=== PATIENT | male | born 1930 | race Caucasian/White ===

== ENCOUNTER 2016-11-26 23:00 | Inpatient (IN) | payer MEDICARE ==
--- NOTE | ~2016-11-26 | CN ---
Consultation Report [facility] [address] [place]. [address] NAME: GILBERT TOMAS : [birth year] STATUS : ADM IN PAT#: [id number] AGE: 85 ADM/REG DATE : 11/27/16 MR#: [id number] REPORT SERV DATE: 11/27/16 DICTATED BY: TREMAINE VELA DATE: 11/27/16 REPORT STATUS : Draft TRANSCRIBED BY: MODL DATE: 11/27/16 CARDIOLOGY CONSULTATION DATE OF CONSULTATION: 11/27/2016 REFERRING PHYSICIAN: Dr. Diana. PRIMARY AUTOMATION CONSULTANT: Gilbert Desai M.D. CHIEF COMPLAINT: Fever and chills. REASON FOR CONSULTATION: Abnormal troponin. SOURCE: The patient, his family, and the chart. HISTORY OF PRESENT ILLNESS: Mr. Tomas is a very pleasant 85-year-old white man with coronary artery disease, treated medically and diastolic dysfunction, as well as peripheral artery disease, and renal artery disease. He was in his usual state of health until yesterday. He played golf in the morning and then in the evening, he had chills and fever to 104 degrees Fahrenheit. He has not had any chest pain. No shortness of breath. He had a little cough producing white sputum yesterday evening. He has not had any dysuria or frequency. He came to [facility] and was thought to have pneumonia and is being treated with antibiotics. The troponin level was drawn, which was mildly abnormal at 0.15 and we were asked to see him in consultation. REVIEW OF SYSTEMS: All other systems are negative. ALLERGIES: HYDROCODONE, IBUPROFEN, AND CLINDAMYCIN. MEDICATIONS AT HOME: Included allopurinol, amlodipine, aspirin, clopidogrel, metoprolol, nitroglycerin, tramadol, and fish oil. CARDIAC RISK FACTORS: Included hypertension, hyperlipidemia, remote tobacco. Denies diabetes or family history. PAST MEDICAL HISTORY: Significant for coronary artery disease, reportedly three-vessel CAD at catheterization. Recommendations were for medical therapy. He has had a renal artery stenosis status post angioplasty and stenting of the solitary left kidney in 2010, status post bilateral carotid endarterectomy, iliac graft for ischemic left lower extremity, congestive heart failure, thought to be diastolic dysfunction with normal LV systolic function by echocardiography, PVCs status post right nephrectomy for cancer in 2003. He has also had colon cancer status post colon surgery, cataract surgery, and skin cancers. Consultation Report [id number] [place]. [address] NAME: GILBERT TOMAS : [birth year] STATUS : ADM IN [facility]#: [id number] AGE: 85 ADM/REG DATE : 11/27/16 MR#: [id number] REPORT SERV DATE: 11/27/16 DICTATED BY: TREMAINE VELA DATE: 11/27/16 REPORT STATUS : Draft TRANSCRIBED BY: SHAHEEN DATE: 11/27/16 SOCIAL HISTORY: The patient lives in [place]. He is . He has two children, alive and well. He is retired from the railroad. FAMILY HISTORY: Negative for coronary artery disease at young age. PHYSICAL EXAMINATION: GENERAL: He is well-developed, well-nourished, elderly white man, in no acute distress. VITAL SIGNS: The blood pressure is 81/47, pulse 69, temperature 98.8 degrees Fahrenheit. Weight is 80 kilos, height is 170 cm. HEENT: Sclerae anicteric. Lips without cyanosis. Carotids 2+ and symmetrical. Bilateral bruits. NECK: No JVD. No thyromegaly. LUNGS: Clear anteriorly. No use of accessory muscles. HEART: Regular rate and rhythm without murmur, gallop, or rub. ABDOMEN: Positive bowel sounds. Soft, nontender. EXTREMITIES: Pulses 2+ and symmetrical. No cyanosis, clubbing, or edema. BACK: No CVA tenderness. MUSCULOSKELETAL: Good tone. NEURO: Alert and oriented x3. IMAGING: EKG reveals sinus rhythm, left bundle-branch block. LABORATORY EXAMINATION: Included a Strep pneumonia antigen, which was negative, Legionella antigen which was not detected. The white count of 37.6, hemoglobin 12.6, hematocrit 37.2, and platelets 221,000. Sodium 139, potassium 4.8, chloride 102, CO2 24, glucose 130, BUN 27, creatinine 1.97. The CPK 280, the MB 2.8 and the troponin I of 0.08. The first troponin was 0.15. The procalcitonin was abnormal at 45.36. The lactate level was 2.7. The BNP level was 258. The urinalysis; specific gravity 1.020, pH 5.0, protein 100, trace leuk esterase with four white cells, one red cell, rare bacteria. The blood gas; pH 7.42, pCO2 35, pO2 65, oxygen saturation is 93%. The Influenza screen is negative. The chest x-ray, possible early infiltrate, left lung base. IMPRESSION: 1. Sepsis and possible pneumonia. 2. Hypotension, probably secondary to #1. 3. Small elevation of troponin with normal CPK and MB probably due to #1. Doubt myocardial infarction. 4. Left bundle-branch block. 5. History of diastolic congestive heart failure with normal left ventricular systolic function. 6. History of bilateral carotid endarterectomy. 7. Solitary left kidney status post angioplasty and stenting in 2010. 8. Acute kidney injury on chronic kidney disease. 9. Peripheral artery disease, status post left iliac stent. Consultation Report [address] [address] NAME: GILBERT TOMAS : [birth year] STATUS : ADM IN [facility]#: [id number] AGE: 85 ADM/REG DATE : 11/27/16 MR#: [id number] REPORT SERV DATE: 11/27/16 DICTATED BY: TREMAINE VELA DATE: 11/27/16 REPORT STATUS : Draft TRANSCRIBED BY: SHAHEEN DATE: 11/27/16 10.History of colon cancer and renal cell cancer. 11.Coronary artery disease, status post catheterization, treated medically. 12.Cardiac risk factors including hypertension, cholesterol, and remote tobacco use. RECOMMENDATIONS: 1. Check renal artery ultrasound to rule out renal artery stenosis. 2. Check postvoid residual urine. Consider Morales catheter. 3. Blood pressure support. 4. Watch for congestive heart failure. 5. Stop troponins. 6. Nephrology consultation. 7. Antibiotic therapy and supportive care. CARLYLE/SHAHEEN Tremaine Vela M.D. / [id number] CC: Rosanna Barnhart M.D.
--- NOTE | ~2016-11-26 | HP ---
History And Physical [id number] [place]. [address] NAME: GILBERT TOMAS : [birth year] STATUS : ADM IN PAT#: [id number] AGE: 85 ADM/REG DATE : 11/27/16 MR#: [id number] REPORT SERV DATE: 11/27/16 DICTATED BY: YUNIEL JO DATE: 11/27/16 REPORT STATUS : Draft TRANSCRIBED BY: MODL DATE: 11/27/16 DATE OF ADMISSION: 11/26/2016 POINT OF ENTRY: [facility] Emergency Department. PRIMARY MARKETING PROJECT LEAD: Gilbert Desai M.D. CHIEF COMPLAINT: Fevers, chills, and shortness of breath. HISTORY OF PRESENT ILLNESS: Mr. Tomas is an 85-year-old gentleman with a history of nonobstructive coronary artery disease as well as peripheral vascular disease, chronic kidney stage 3, and chronic diastolic congestive heart failure who presents to the emergency department today with acute onset of fevers, chills, rigors, and shortness of breath at approximately 6 p.m. on evening. The patient states he was at usual state of health and actually golfed 18 holes of golf earlier on . Upon returning home, he noted some nonproductive cough as well as a vague sensation of chest tightness. Beginning around 6 p.m., he started to develop chills, very tresa rigors, as well as fevers as high as 103.5 degrees Fahrenheit. In that setting, the patient also endorses some mild shortness of breath. He denies any chest pain, palpitations, wheezing, abdominal pain, nausea, vomiting, diarrhea, constipation, dysuria, lower extremity edema, melena, hematochezia, hemoptysis, or hematemesis. REVIEW OF SYSTEMS: Comprehensive review of system is otherwise negative unless listed in history of present illness. Initial evaluation in the emergency department noted for a fever of 100.7 degrees Fahrenheit, pulse is 103. He was noted to be hypoxemic on room air and is now actually requiring 5 L by nasal cannula to maintain O2 saturations above 92%. Chest x-ray shows no acute infiltrate. Labs notable for a white count of 20,200. Flu swab was negative. The patient was subsequently admitted to the Hospitalist Service for further evaluation and management. PREVIOUS MEDICAL HISTORY: 1. Nonobstructive coronary artery disease. 2. Peripheral vascular disease and peripheral artery disease. 3. Chronic kidney disease, stage 3, baseline creatinine 1.5 to 1.6. 4. Solitary kidney. 5. History of renal cell carcinoma, status post nephrectomy. 6. Hypertension. 7. Hyperlipidemia. 8. History of colon cancer, status post partial colectomy. 9. Chronic diastolic congestive heart failure. History And Physical [address] [address] NAME: GILBERT TOMAS : [birth year] STATUS : ADM IN PAT#: [id number] AGE: 85 ADM/REG DATE : 11/27/16 MR#: [id number] REPORT SERV DATE: 11/27/16 DICTATED BY: YUNIEL JO DATE: 11/27/16 REPORT STATUS : Draft TRANSCRIBED BY: SHAHEEN DATE: 11/27/16 PAST SURGICAL HISTORY: 1. Bilateral carotid endarterectomy. 2. Femoral-femoral bypass. 3. Right nephrectomy. 4. Appendectomy. 5. Partial colectomy. 6. Shoulder surgery. ALLERGIES: NSAIDS AND IBUPROFEN. HOME MEDICATIONS: Pending at the time of dictation. SOCIAL HISTORY: The patient is a former smoker, quit but greater than 30 years ago. Denies any alcohol. Denies any illicits. Family states that Mr. Tomas golfs on a very regular basis and is very active. FAMILY MEDICAL HISTORY: Mother of old age. Father with history of stroke. Sibling with history of lung cancer. LABS AND IMAGIN. White count is 20.2, hemoglobin is 13.8, hematocrit is 40.3, and platelet count 255. INR is 1.1. 2. Sodium is 141, potassium 3.6, chloride 105, carbon dioxide 24, BUN 23, creatinine 1.88, glucose is 133, calcium is 8.7, protein is 3.5, bilirubin is 0.8, ALT is 25, AST 18, alkaline phosphatase is 94. 3. ABG; pH is 7.42, pCO2 is 35, PO2 is 65, bicarb is 22, saturating 93% on 4 L of cannula. 4. Lactic acid is 2.4. 5. Flu swab was negative. 6. Chest x-ray per my review shows no acute cardiopulmonary abnormality. I do not appreciate any focal consolidation or infiltrate. PHYSICAL EXAMINATION: VITAL SIGNS: Temperature is 100.7 degrees Fahrenheit, pulse is 103, respiration is 18, saturating 82% on room air. Blood pressure is 130/60, on recheck blood pressure is now 133/53, saturating 94% on 5 L by nasal cannula. GENERAL: The patient is awake, alert, in no acute distress. Resting comfortably in bed. He is a well-developed, well-nourished, elderly male. HEENT: Atraumatic and normocephalic. Moist mucous membranes. Pupils are equal, round, reactive to light and accommodation. Extraocular eye movements are intact. No scleral icterus. NECK: No jugular venous distention. No carotid bruits. CARDIAC: Regular rate and rhythm. No murmurs, rubs, or gallops. Normal S1, normal S2. LUNGS: The patient has decreased breath sounds at the bases. Otherwise, there is no appreciable wheezing, rhonchi, crackles, or rales. He is in no respiratory distress. Speaking in full sentences. ABDOMEN: Soft, nontender, nondistended with good bowel sounds. No rebound, guarding, or History And Physical [address] [address] NAME: GILBERT TOMAS : [birth year] STATUS : ADM IN [facility]#: [id number] AGE: 85 ADM/REG DATE : 11/27/16 MR#: [id number] REPORT SERV DATE: 11/27/16 DICTATED BY: YUNIEL JO DATE: 11/27/16 REPORT STATUS : Draft TRANSCRIBED BY: MODSpike DATE: 11/27/16 rigidity. EXTREMITIES: Warm and well perfused. No cyanosis, clubbing, or edema. SKIN: Warm and dry. PSYCH: Affect appropriate. NEURO: Alert and oriented x3. Cranial nerves II through XII grossly intact. Speech is normal. Gait not assessed. ASSESSMENT AND PLAN: Mr. Tomas is an 85-year-old gentleman, who presents to the emergency department with the acute onset of fevers, chills, rigors, and shortness of breath, found to have evidence of acute hypoxic respiratory failure as well as systemic inflammatory response. PROBLEM LIST: 1. Acute hypoxic respiratory failure. 2. Systemic inflammatory response. 3. Suspicion for pneumonia. 4. Acute kidney injury on chronic kidney disease, stage 3. 5. History of chronic diastolic congestive heart failure. PLAN: 1. A0cute hypoxic respiratory failure, unclear etiology at this time. Given his clinical symptoms, I suspect the patient has a pneumonia causing his hypoxic respiratory failure. He does not appear to have any evidence of volume overload at this time, but we will check a BNP. He does have a smoking history, but I do not appreciate any evidence of wheezing consistent with a COPD exacerbation. We will attempt to wean as tolerated. We will provide some pulmonary toilet to assist. 2. Presumed pneumonia. We will treat empirically for presumed pneumonia. We will order a CT scan of the chest to better visualize the lungs as I suspect that given the acuity of his symptoms, the chest x-ray obtained in the ER, the pneumonia out of developed enough to be caught by chest x-ray. 3. Systemic inflammatory response. The patient meets criteria with fevers, tachycardia, and white count, suspect this is due to presumed underlying pneumonia, making this actually sepsis. Lactic acid within normal limits. We will provide empiric IV antibiotics as well as some gentle IV fluid hydration given his history of diastolic dysfunction. 4. Acute kidney injury on chronic kidney disease, stage 3. Again provide some gentle IV fluid hydration. Holding nephrotoxic medications. 5. Chronic diastolic congestive heart failure. Checking a BNP level; however, he does not appear to be clinically volume overloaded at this time on my examination. 6. DVT prophylaxis. Heparin subcu. CODE STATUS: The patient wishes to be full code. OTTO/ARGENTINAL History And Physical [address] [address] NAME: GILBERT TOMAS : [birth year] STATUS : ADM IN PAT#: [id number] AGE: 85 ADM/REG DATE : 11/27/16 MR#: [id number] REPORT SERV DATE: 11/27/16 DICTATED BY: YUNIEL JO DATE: 11/27/16 REPORT STATUS : Draft TRANSCRIBED BY: ARGENTINAL DATE: 11/27/16 Yuniel Jo MD / [id number] CC: Yannick Zapata M.D.
--- NOTE | ~2016-11-26 | DS ---
Discharge Summary [id number] [place]. [address] NAME: LUCILA TOMAS : [birth year] STATUS : DIS IN PAT#: [id number] AGE: 85 ADM/REG DATE : 11/27/16 MR#: [id number] REPORT SERV DATE: 12/02/16 DICTATED BY: TONO LLAMAS DATE: 12/01/16 REPORT STATUS : Draft TRANSCRIBED BY: MODL DATE: 12/01/16 ADMISSION DATE: 11/27/2016 DISCHARGE DATE: 12/01/2016 DISCHARGE DIAGNOSES: 1. Acute hypoxic respiratory failure. 2. Acute kidney injury, currently resolved. 3. Pneumonia. 4. Acute diastolic congestive heart failure. 5. Benign hypertension. 6. Sepsis due to unspecified organism, currently resolved. 7. Nonobstructive coronary artery disease. 8. Peripheral vascular disease and peripheral arterial disease. 9. Solitary kidney. 10.History of renal cell carcinoma, status post nephrectomy. 11.Hyperlipidemia. 12.History of colon cancer, status post partial colectomy. 13.Chronic diastolic heart failure, currently compensated. CONSULTANTS DURING THIS HOSPITALIZATION: Dr. Maverick Zarate of Pulmonology, [facility], and Dr. Jm Lai of Cardiology. INVASIVE PROCEDURES DONE DURING THIS HOSPITALIZATION: None. BRIEF HISTORY OF PRESENT ILLNESS: The patient is an 85-year-old white male with multiple medical issues, who was in his usual state of health and started having nonproductive cough, as well as vague sensations of chest tightness, developed chills and fever of 103.5, so he was admitted. For detailed history and physical exam, please see note dictated by Dr. Swanson on 11/27/2016. HOSPITAL COURSE: After being admitted to the hospital, Pulmonology was consulted and Dr. Barnhart continued to follow the patient. Pulmonology's impression was that he had a chest x- ray consistent with left lower lobe infiltrate and his procalcitonin level was 45 and escalated, the white count of 37,000, concerning for a nosocomial rather than a community- acquired pneumonia. Brovana, Pulmicort, and DuoNebs were started. Vancomycin, Zosyn, and Levaquin were added. Normal saline boluses were given and sputum smear and culture, urine Legionella and streptococcal urines were done which all remained negative. Blood cultures have remained negative. He was given IV Solu-Medrol as well. In the interim, Dr. Lai saw the patient in consultation as well for his abnormal troponin and Dr. Lai' impression was that he had sepsis and possible pneumonia and a small elevation in troponin was with normal CPK, was doubt due to myocardial infarction. The patient does have chronic left bundle branch block. His recommendations were to check renal artery Dopplers to rule out renal artery stenosis, postvoid residuals, blood pressure support, watch congestive heart failure, and Nephrology consultation. Nephrology saw the patient in consultation for his acute kidney injury and recommended that fluid boluses be given and the patient be resuscitated. After all this, in the last 72 hours, this patient has significantly improved. Today, he is Discharge Summary [address] [address] NAME: LUCILA TOMAS : [birth year] STATUS : DIS IN PAT#: [id number] AGE: 85 ADM/REG DATE : 11/27/16 MR#: [id number] REPORT SERV DATE: 12/02/16 DICTATED BY: TONO LLAMAS DATE: 12/01/16 REPORT STATUS : Draft TRANSCRIBED BY: SHAHEEN DATE: 12/01/16 fully ambulatory, walking. He has been switched to Levaquin oral. Dr. Stevenson has signed off his care and Cardiology has also signed off his care. His white count today is 16.5 thousand which has significantly improved. His hemoglobin is 13 and hematocrit is 38. His kidney function has normalized to a creatinine of 1.26 and he feels well enough. He is fully ambulatory. He is off his O2, and he feels that he can go home and recover in the home setting on oral Levaquin. DISCHARGE DISPOSITION: Home. DISCHARGE ACTIVITY: As tolerated. DISCHARGE DIET: Low sodium diet. DISCHARGE MEDICATIONS: Allopurinol 300 mg once at bedtime, aspirin 81 mg once daily, Plavix 75 mg once daily, Lopressor 12.5 mg twice daily, tramadol 50 mg twice daily p.r.n. for pain, Levaquin 750 mg p.o. once daily, Anoro Ellipta one puff once daily, amlodipine 2.5 mg twice daily, fish oil over the counter, and nitroglycerin 0.4 sublingual p.r.n. DISCHARGE FOLLOWUP: With Dr. Amaury Boston in one week for repeat chest x-ray. With Dr. Lai as scheduled previously. With Dr. Stevenson as scheduled by him. More than 35 minutes spent planning this patient's discharge, reconciling medications, writing prescriptions, discussing hospital care, and followup with the patient and documenting this discharge. HEMALATHA/ARGENTINAL Tono Llamas M.D. / [id number] CC: Yannick Kelly IV, M.D. David Elias, M.D. Brian Negus, M.D.
--- NOTE | ~2016-11-26 | CN ---
Consultation Report [facility] [address] [facility] [facility] [place]. [address] NAME: LUCILA TOMAS : [birth year] STATUS : ADM IN [facility]#: [id number] AGE: 85 ADM/REG DATE : 11/27/16 MR#: [id number] REPORT SERV DATE: 11/27/16 DICTATED BY: DATE: REPORT STATUS : Draft TRANSCRIBED BY: MODSpike DATE: 11/27/16 CONSULTATION DATE OF CONSULTATION: REASON FOR CONSULTATION: Acute kidney injury. HISTORY OF PRESENT ILLNESS: Mr. Tomas is an 85-year-old white male, followed in the office by Dr. Dow. He has a solitary kidney secondary to renal cell carcinoma. He also has renal artery stenosis with stent to the solitary kidney. Apparently, he was doing well yesterday in his usual state of health, out playing golf. No problems on the golf course. No nausea, vomiting, or diarrhea. Drank plenty of water. He did develop a cough with some yellow sputum production and then last night, developed fever up to 104 and presented to the emergency department, where he was found to have increased white blood cell count at 45,000 and procalcitonin of 35. Admitted to the hospital for probable pneumonia and being treated. We have been asked to see the patient in consultation because of the solitary kidney. Looks like his baseline creatinine according to [facility] records is around 1.5 to 1.6 and today, creatinine is up to 1.97. He denies any difficulty with urination. No dysuria or hematuria. PAST MEDICAL HISTORY: CKD with solitary kidney, renal cell carcinoma, renal artery stenosis with stent to the solitary kidney, coronary artery disease, hypertension, hyperlipidemia, colon cancer, diastolic heart failure, bilateral CEA, a fem-fem bypass, appendectomy, cholecystectomy. ALLERGIES: NSAIDS. SOCIAL HISTORY: He is . Plays golf regularly. History of tobacco, but none at present. No alcohol or illicit drug use. FAMILY MEDICAL HISTORY: Negative for kidney disease. MEDICATIONS: Allopurinol, amlodipine, aspirin, Plavix, metoprolol, nitroglycerin, tramadol, fish oil. REVIEW OF SYSTEMS: A 12-point review of systems obtained and negative with the exception of that in the history of present illness. PHYSICAL EXAMINATION: VITAL SIGNS: Temperature 98.8, blood pressure 81/47, pulse 69, respiratory rate 18, O2 saturation is 94% on 4 L. GENERAL: This is a pleasant, cooperative, white male. He is awake, alert and oriented x3, in no acute distress. Answers questions appropriately. Sitting up on the side of bed, Consultation Report [id number] [facility] [place]. [address] NAME: LUCILA TOMAS : [birth year] STATUS : ADM IN PAT#: [id number] AGE: 85 ADM/REG DATE : 11/27/16 MR#: [id number] REPORT SERV DATE: 11/27/16 DICTATED BY: DATE: REPORT STATUS : Draft TRANSCRIBED BY: MODL DATE: 11/27/16 eating lunch. HEENT: Normocephalic and atraumatic. Conjunctivae clear. Sclerae anicteric. Pupils equal and found. Oral mucosa is moist. NECK: Supple. No lymphadenopathy. LUNGS: Respirations are even and unlabored. Breath sounds clear to auscultation. HEART: Rate is regular. I did not hear any murmur, rub, or gallop. ABDOMEN: Soft and nontender. No CVA tenderness. BACK: Within normal limits. EXTREMITIES: No edema, cyanosis, or clubbing. SKIN: Warm, dry, and intact. No unusual rashes or skin lesions. NEURO: No focal deficits. Mood and affect, pleasant and appropriate. PERTINENT LABORATORIES AND X-RAYS: Urine sodium of 45. ABG with a pO2 of 83, pCO2 of 34, pH of 7.4, and bicarb of 20. Magnesium 1.7. B12 is 266. Sodium 139, potassium 4.8, chloride 102, CO2 of 24, BUN 27, creatinine 1.97. Troponin 0.08. WBCs 37,000; H and H 12 and 37; platelets 221,000. IMPRESSION: 1. Acute kidney injury. 2. Chronic kidney disease stage 3. 3. Solitary kidney secondary to renal cell carcinoma. 4. Renal artery stenosis with stent to solitary kidney. 5. Probable pneumonia. 6. Sepsis. 7. Hypotension. 8. Coronary artery disease. 9. History of diastolic heart failure. PLAN/RECOMMENDATIONS: With low blood pressures, he is getting fluid boluses in hopes of getting his blood pressure up. If this blood pressure cannot be maintained, he will need to be moved to the intensive care unit for pressor support and IV fluids. Follow I's and O's and labs. Check a postvoid residual. We will follow along with you. Avoid nephrotoxins. Thank you for the consultation. SANJANA/SHAHEEN ELMA Gómez / [id number] CC: Consultation Report [address] [place]. [address] NAME: LUCILA TOMAS : [birth year] STATUS : ADM IN PAT#: [id number] AGE: 85 ADM/REG DATE : 11/27/16 MR#: [id number] REPORT SERV DATE: 11/27/16 DICTATED BY: DATE: REPORT STATUS : Draft TRANSCRIBED BY: SHAHEEN DATE: 11/27/16 Rosanna Barnhart M.D.
--- NOTE | ~2016-11-26 | CN ---
Consultation Report [facility] [address] [place]. [address] NAME: GILBERT TOMAS : [birth year] STATUS : ADM IN PAT#: [id number] AGE: 85 ADM/REG DATE : 11/27/16 MR#: [id number] REPORT SERV DATE: 11/27/16 DICTATED BY: KENAN RHODES DATE: 11/27/16 REPORT STATUS : Draft TRANSCRIBED BY: MODL DATE: 11/27/16 CONSULTATION REPORT DATE OF CONSULTATION: Dear Dr. Swanson and Dr. Barnhart: Thank you for requesting my opinion regarding evaluation and management of Mr. Gilbert Tomas's shortness of breath, dyspnea on exertion, and hypoxemia. Mr. Tomas is an extremely pleasant 85-year-old gentleman, active golfer with a history of nonobstructive coronary artery disease, peripheral vascular disease, chronic kidney disease, and history of renal cell carcinoma, status post nephrectomy, congestive heart failure, who presented to [facility] yesterday with acute onset of fevers, chills, rigors, shortness of breath and subsequent workup demonstrated a left lower lobe pneumonia. He was started initially on ceftriaxone and azithromycin, and then switched to a single agent Levaquin. Unfortunately, his white count escalated to 37,000 and I have been asked to follow up and help optimize his pulmonary management. Despite his objective data demonstrating significant changes including an elevated white count, the patient appears to be doing quite well. He states that he has shortness of breath moderate in nature, well localized to the chest, nonradiating with no significant alleviating or exacerbating factors. Initially stated that he has some vague sensation of chest tightness, but that has since abated. He denies any hemoptysis, nausea, vomiting, diarrhea, or constipation. REVIEW OF SYSTEMS: A detailed 14-point review of systems was completed. Pertinent positives and negatives are listed above. PAST MEDICAL HISTORY: 1. Nonobstructive coronary artery disease. 2. Peripheral vascular disease. 3. Peripheral artery disease. 4. Chronic kidney disease with baseline creatinine of 1.5 to 1.6. 5. Solitary kidney, status post nephrectomy for renal cell carcinoma. 6. Hypertension. 7. Hyperlipidemia. 8. Colon cancer, status post partial colectomy. 9. Chronic diastolic congestive heart failure. PAST SURGICAL HISTORY: 1. Bilateral carotid endarterectomy. 2. Fem-fem bypass. 3. Right nephrectomy. 4. Appendectomy. Consultation Report [address] [place]. [address] NAME: GILBERT TOMAS : [birth year] STATUS : ADM IN PAT#: [id number] AGE: 85 ADM/REG DATE : 11/27/16 MR#: [id number] REPORT SERV DATE: 11/27/16 DICTATED BY: KENAN RHODES DATE: 11/27/16 REPORT STATUS : Draft TRANSCRIBED BY: SHAHEEN DATE: 11/27/16 5. Partial colectomy. 6. Shoulder surgery. ALLERGIES: NSAIDS AND IBUPROFEN. HOME MEDICATIONS: Reviewed and located in the paper chart. SOCIAL HISTORY: The patient smoked for 40 years, but quit 30 years ago. He has no history of alcohol or illicit drug abuse. FAMILY HISTORY: Stroke and lung cancer. PHYSICAL EXAMINATION: VITAL SIGNS: Afebrile, T-current of 98, pulse of 69, respiratory rate of 18, O2 saturation of 4 L 94%, blood pressure 81/47, 5 foot 7 inches, 176 pounds, BMI of 27. GENERAL: Sitting upright in chair, jovial, and engaging, with no signs of significant illness, and in no acute respiratory distress. HEENT: Normocephalic and atraumatic. Pupils are equal, round, and reactive to light and accommodation. Posterior oropharynx is clear. NECK: No JVD. No LAD. Trachea midline. CARDIOVASCULAR: Regular rate and rhythm. S1, S2 present. LUNGS: Coarse bilateral breath sounds, worse on the left base. No dullness to percussion. ABDOMEN: Protuberant, nontender, nondistended, and soft. Positive bowel sounds. EXTREMITIES: No clubbing, cyanosis, or edema. SKIN: No new rashes, lesions, or ulcers. PSYCHIATRIC: Alert and oriented x3. Appropriate mood and affect. Appropriate insight and judgment. NEUROLOGIC: 5/5 strength in upper and lower extremities. Cranial nerves II through XII intact. Gait not tested. DTRs not performed. LABORATORY DATA: White count escalated from 20,000 to 37,000, hemoglobin of 12, and platelet count of 231, neutrophilic predominant. Procalcitonin of 45, creatinine up from a baseline of 1.5 to 1.6, to 1.97, troponins leak demonstrated by 0.15 to 0.0 each troponin, pH is 7.42, PaCO2 of 35, PaO2 of 65. Trace leukocyte esterase. IMAGING STUDIES: Chest x-ray demonstrated on 11/26/2016, which was personally reviewed by me as a possible early infiltrate in the left lower lobe lung base. ASSESSMENT AND PLAN: Mr. Tomas is an extremely pleasant 85-year-old gentleman, with a significant past medical history of coronary artery disease, obstructive sleep apnea, and former heavy tobacco user, who presents to [facility] with worsening shortness of breath, dyspnea on exertion, and high fevers. The patient's chest x-ray on 11/26/2016, Consultation Report [facility] [address] [place]. [address] NAME: GILBERT TOMAS : [birth year] STATUS : ADM IN [facility]#: [id number] AGE: 85 ADM/REG DATE : 11/27/16 MR#: [id number] REPORT SERV DATE: 11/27/16 DICTATED BY: KENAN RHODES DATE: 11/27/16 REPORT STATUS : Draft TRANSCRIBED BY: SHAHEEN DATE: 11/27/16 demonstrated possible early left lower lobe infiltrate. The clinical and radiographic presentation is most consistent with multifactorial shortness of breath, due to the following; 1. Left lower lobe pneumonia with fevers of up to 103.5, cough, chills, procalcitonin of 45, and escalating white count of 37,000 up from 20,000 concerning for nosocomial rather than community-acquired pneumonia. 2. Advanced age. 3. Coronary artery disease, diastolic heart failure. 4. History of renal cell carcinoma and colon cancer, question of progression of disease. 5. Former smoker. 6. Obstructive sleep apnea. 7. Concomitant factors including hypotension and acute kidney injury in the setting of prior solitary kidney, status post nephrectomy. 8. Acute exacerbation of clinical chronic obstructive pulmonary disease. At this point, Mr. Tomas needs aggressive therapy I have discussed my plan with Dr. Barnhart and we are in agreement to start the followin. Brovana, Pulmicort, DuoNeb, and BiPAP p.r.n. 2. Vancomycin, Zosyn, and Levaquin. 3. Normal saline bolus followed by continuous IV infusion. 4. Sputum smear and culture, urine Legionella, and streptococcal urine antigen. 5. Further recommendations pending CT scan of the chest. 6. Owen. DWAYNE/MODL Kenan Rhodes M.D. / [id number] CC: Rosanna Barnhart M.D.
[~2016-11-26 23:00] MED LIST: ASAB PO; ATEN25 PO; ATEN50 PO; BIDIL20/37 PO; BUM2 PO; CALCIUM; CALCIUM PO; CALTRAT600 PO; CARDU4 PO; CARDURA XL4 MG PO; CAT1 PO; CLEOCIN300 MG PO; DEMA100 PO; FISH-EPA1000 MG PO; FLORASTOR250 MG PO; L40 PO; LIPITOR20 PO; LONITEN2.5 PO; LOP25 PO; LOP50 PO; MAXZIDE PO; MINIPRESS 1 MG C1 MG OR; MINIPRESS 2 MG C2 MG OR; MULTIPLE VIT PO; NITROII10C TOP; NITROSTAT0.4 MG SL; NORCO1 TA1 PO; NORV5 PO; NTG150 SL; OXYGEN; PLAVIX PO; SPIRIVA INH; SPIRO25 PO; TAPAZOLE5 MG OR; ULTRAM ER200 MG PO; ULTRAM50 PO; VITAMIN D; VITAMIN D1000 UNI1 PO; X5 PO; XANAX1 MG PO; Z300 PO; [UNRECOGNIZED DRUG - OTHER] PO
[2016-11-26 23:10] LABS: BASOPHILS 0.1 %; BASOPHILS ABSOLUTE 0.03 10/3/uL (0.0-0.16); EOSINOPHILS 0.3 %; EOSINOPHILS ABSOLUTE 0.07 10/3/uL (0.0-0.53); HEMATOCRIT 40.3 % (40.0-51.0); HEMOGLOBIN 13.8 g/dL (13.6-17.8); IMMATURE GRANULOCYTES 0.1 %; IMMATURE GRANULOCYTES ABSOLUTE 0.02 10/3/uL (0.0-0.11); LYMPHOCYTES 4.8 %; LYMPHOCYTES ABSOLUTE 0.97 10/3/uL (0.67-4.30); MEAN CORPUS HGB CONC 34.2 g/dL (32.0-36.0); MEAN CORPUSCULAR HEMOGLOB 33.4 pg (26.0-34.0); MEAN PLATELET VOLUME 9.4 fL (9.2-13.0); MONOCYTES 2.3 %; MONOCYTES ABSOLUTE 0.46 10/3/uL (0.21-1.20); NEUTROPHILS 92.4 %; NEUTROPHILS ABSOLUTE 18.65 10/3/uL (2.02-8.40); PLATELET COUNT 255 10/3/uL (150-400); RBC DISTRIBUTION WIDTH 14.2 % (12.0-16.0); RED CELL COUNT 4.13 10/6/uL (4.7-6.1)
[2016-11-26 23:11] LABS: ER CBC TAT 0 Hrs 09 Mins; MANUAL DIFF NO %; MEAN CORPUSCULAR VOLUME 97.6 fL (80-100); WHITE BLOOD CELLS 20.2 10/3/uL (4.5-10.5)
[2016-11-26 23:17] LABS: INTERNATIONAL NORMAL RATI 1.1 UNITS (-)
[2016-11-26 23:25] LABS: ALBUMIN 3.5 G/DL (3.5-5.0); ALKALINE PHOSPHATASE 94 U/L (45-117); BUN (BLOOD UREA NITROGEN) 23 MG/DL (6-23); CALCIUM, SERUM 8.7 MG/DL (8.5-10.4); CHLORIDE, SERUM 105 MMOL/L (96-112); CO2 (CARBON DIOXIDE) 24 MMOL/L (24-34); CREATININE 1.88 MG/DL (0.70-1.30); GFR AFRICAN AMERICAN 36 ML/MIN (>=60); GFR NON AFRICAN AMERICAN 31 ML/MIN (>=60); GLOBULIN 3.5 G/DL (2.5-4.1); GLUCOSE, SERUM 133 MG/DL (60-99); POTASSIUM, SERUM 3.6 MMOL/L (3.5-5.3); SGOT(AST) 18 U/L (5-40); SGPT(ALT) 25 U/L (5-65); SODIUM, SERUM 141 MMOL/L (135-148); TOTAL BILIRUBIN 0.8 MG/DL (0-1.2)
[2016-11-26 23:29] LABS: INFLUENZA A SCREEN NEGATIVE (NEGATIVE); INFLUENZA B SCREEN NEGATIVE (NEGATIVE)
[2016-11-27 00:05] LABS: ALLENS TEST Pos; BE (BASE EXCESS) -1.8 MEQ/L (0 +/- 2.5); CARBOXYHEMOGLOBIN 1.4 % (0-3); HCO3 (ACTUAL BICARBONATE) 22.1 MEQ/L (23-27); INSTRUMENT SERIAL # 8087; METHEMOGLOBIN 0.2 % (0-3); O2 CONTENT 18.1 VOL% (18-24); OPERATOR ID 17589; PCO2 (CO2 TENSION) 35 MMHG (35-45); PO2 (O2 TENSION) 65 MMHG (79-93); SAMPLE Arterial; pH 7.42 (7.37-7.43)
[2016-11-27] MEDS ORDERED: Z300 PO (01:52)
[2016-11-27] MEDS ORDERED: NORV25 PO (01:53)
[2016-11-27] MEDS ORDERED: ASAB PO (01:53)
[2016-11-27] MEDS ORDERED: PLAVIX PO (01:53)
[2016-11-27] MEDS ORDERED: LOP25 PO (01:54)
[2016-11-27] MEDS ORDERED: NITROSTAT0.4 MG SL (01:54)
[2016-11-27] MEDS ORDERED: FISH OIL OTC PO (01:54)
[2016-11-27] MEDS ORDERED: ULTRAM50 PO (01:55)
[2016-11-27 04:32] LABS: ASCORBIC ACID (UR NOT ORDER) NEG (NEG); BILIRUBIN, URINE NEGATIVE (NEG); ER URINALYSIS TAT 0 Hrs 00 Mins; KETONE, URINE NEGATIVE (NEG); LEUKOCYTE ESTERASE(NOT OR TRACE (NEG); NITRITE (URINE) NEG (NEG); WBC (NOT ORDERED) (RFLEX) 4 (0-5)
[2016-11-27 04:36] LABS: TROPONIN I 0.15 NG/ML (<0.05)
[2016-11-27 05:11] LABS: PROCALCITONIN 45.36 ng/mL (<0.5)
[2016-11-27 10:35] LABS: HEMATOCRIT 37.2 % (40.0-51.0); HEMOGLOBIN 12.6 g/dL (13.6-17.8); MEAN CORPUS HGB CONC 33.9 g/dL (32.0-36.0); MEAN CORPUSCULAR HEMOGLOB 33.6 pg (26.0-34.0); MEAN CORPUSCULAR VOLUME 99.2 fL (80-100); MEAN PLATELET VOLUME 9.4 fL (9.2-13.0); PLATELET COUNT 221 10/3/uL (150-400); RBC DISTRIBUTION WIDTH 14.2 % (12.0-16.0); RED CELL COUNT 3.75 10/6/uL (4.7-6.1)
[2016-11-27 10:40] LABS: WHITE BLOOD CELLS 37.6 10/3/uL (4.5-10.5)
[2016-11-27 10:41] LABS: MANUAL DIFF YES %
[2016-11-27 10:50] LABS: BUN (BLOOD UREA NITROGEN) 27 MG/DL (6-23); CALCIUM, SERUM 8.6 MG/DL (8.5-10.4); CHLORIDE, SERUM 102 MMOL/L (96-112); CO2 (CARBON DIOXIDE) 24 MMOL/L (24-34); CPK (IF ELEVATED MB BANDS) 280 U/L (0-200); CREATININE 1.97 MG/DL (0.70-1.30); GFR AFRICAN AMERICAN 34 ML/MIN (>=60); GFR NON AFRICAN AMERICAN 30 ML/MIN (>=60); GLUCOSE, SERUM 130 MG/DL (60-99); POTASSIUM, SERUM 4.8 MMOL/L (3.5-5.3); SODIUM, SERUM 139 MMOL/L (135-148); TROPONIN I 0.08 NG/ML (<0.05)
[2016-11-27 11:03] LABS: BAND NEUTROPHILS 45 %; CK-MB 2.8 NG/ML; IMMATURE GRANS ABSOLUTE (CALC) 0.38 10/3/uL (0.0-0.11); LYMPHOCYTES 2 %; LYMPHOCYTES ABSOLUTE (CALC) 0.75 10/3/uL (0.67-4.30); METAMYELOCYTES 1 %; MONOCYTES 3 %; MONOCYTES ABSOLUTE (CALC) 1.13 10/3/uL (0.21-1.20); NEUTROPHILS ABSOLUTE (CALC) 35.34 10/3/uL (2.02-8.40); PLATELET ESTIMATE ADQ (ADEQUATE); RBC MORPHOLOGY NORM (NORMAL); SEGMENTED NEUTROPHIL (0) 49 %; TOTAL NUCLEATED CELLS 100; TOXIC GRANULATION SLT
[2016-11-27 11:04] LABS: PATH REVIEW YES
[2016-11-27 11:13] LABS: FOLATE 8.4 NG/ML (>5.2)
[2016-11-27 12:40] LABS: BE (BASE EXCESS) -3.7 MEQ/L (0 +/- 2.5); CARBOXYHEMOGLOBIN 0.3 % (0-3); HCO3 (ACTUAL BICARBONATE) 20.4 MEQ/L (23-27); INSTRUMENT SERIAL # 35151; METHEMOGLOBIN 0.4 % (0-3); O2 CONTENT 16.1 VOL% (18-24); OPERATOR ID 31928; PCO2 (CO2 TENSION) 34 MMHG (35-45); PO2 (O2 TENSION) 83 MMHG (79-93); SAMPLE Arterial
[2016-11-27 12:41] LABS: ALLENS TEST Pos; DEVICE NC
[2016-11-27 13:24] LABS: CPK 309 U/L (0-200)
[2016-11-27 13:27] LABS: CK-MB 3.1 NG/ML; TROPONIN I 0.07 NG/ML (<0.05)
[2016-11-27 17:21] LABS: TROPONIN I 0.05 NG/ML (<0.05)
[2016-11-27 17:35] LABS: CK-MB 4.9 NG/ML
[2016-11-27 22:16] LABS: CKMB INDEX (NOT ORD) 1.9; TROPONIN I 0.07 NG/ML (<0.05)
[2016-11-28 06:42] LABS: BUN (BLOOD UREA NITROGEN) 25 MG/DL (6-23); CALCIUM, SERUM 8.4 MG/DL (8.5-10.4); CHLORIDE, SERUM 108 MMOL/L (96-112); CO2 (CARBON DIOXIDE) 21 MMOL/L (24-34); CREATININE 1.51 MG/DL (0.70-1.30); GFR AFRICAN AMERICAN 47 ML/MIN (>=60); GFR NON AFRICAN AMERICAN 41 ML/MIN (>=60); GLUCOSE, SERUM 150 MG/DL (60-99); PHOSPHORUS, SERUM 2.3 MG/DL (2.5-4.5); POTASSIUM, SERUM 4.7 MMOL/L (3.5-5.3); SGOT(AST) 24 U/L (5-40); SGPT(ALT) 20 U/L (5-65); SODIUM, SERUM 139 MMOL/L (135-148); TOTAL BILIRUBIN 0.8 MG/DL (0-1.2); TOTAL PROTEIN 6.4 G/DL (6.0-8.5); VANCOMYCIN TROUGH 10.7 MCG/ML (10.0-20.0)
[2016-11-28 06:44] LABS: A/G RATIO 0.6 (0.7-1.9); ALBUMIN 2.5 G/DL (3.5-5.0); ALKALINE PHOSPHATASE 59 U/L (45-117); GLOBULIN 3.9 G/DL (2.5-4.1)
[2016-11-28 06:53] LABS: HEMATOCRIT 34.3 % (40.0-51.0); HEMOGLOBIN 11.7 g/dL (13.6-17.8); MEAN CORPUS HGB CONC 34.1 g/dL (32.0-36.0); MEAN CORPUSCULAR HEMOGLOB 33.4 pg (26.0-34.0); MEAN PLATELET VOLUME 9.6 fL (9.2-13.0); PLATELET COUNT 226 10/3/uL (150-400); RBC DISTRIBUTION WIDTH 14.4 % (12.0-16.0)
[2016-11-28 06:54] LABS: WHITE BLOOD CELLS 34.8 10/3/uL (4.5-10.5)
[2016-11-28 06:55] LABS: MANUAL DIFF YES %
[2016-11-28 08:13] LABS: BAND NEUTROPHILS 24 %; LYMPHOCYTES 3 %; LYMPHOCYTES ABSOLUTE (CALC) 1.04 10/3/uL (0.67-4.30); MONOCYTES 5 %; MONOCYTES ABSOLUTE (CALC) 1.74 10/3/uL (0.21-1.20); NEUTROPHILS ABSOLUTE (CALC) 32.02 10/3/uL (2.02-8.40); PLATELET ESTIMATE ADQ (ADEQUATE); SEGMENTED NEUTROPHIL (0) 68 %; TOTAL NUCLEATED CELLS 100
[2016-11-28 08:14] LABS: RBC MORPHOLOGY NORM (NORMAL); TOXIC GRANULATION 1+
[2016-11-29 06:20] LABS: HEMOGLOBIN 11.6 g/dL (13.6-17.8); MEAN CORPUS HGB CONC 34.1 g/dL (32.0-36.0); MEAN CORPUSCULAR HEMOGLOB 33.5 pg (26.0-34.0); MEAN CORPUSCULAR VOLUME 98.3 fL (80-100); MEAN PLATELET VOLUME 9.6 fL (9.2-13.0); PLATELET COUNT 237 10/3/uL (150-400); RBC DISTRIBUTION WIDTH 14.8 % (12.0-16.0); RED CELL COUNT 3.46 10/6/uL (4.7-6.1)
[2016-11-29 06:22] LABS: WHITE BLOOD CELLS 27.6 10/3/uL (4.5-10.5)
[2016-11-29 06:23] LABS: MANUAL DIFF YES %
[2016-11-29 06:36] LABS: ALBUMIN 2.5 G/DL (3.5-5.0); BUN (BLOOD UREA NITROGEN) 25 MG/DL (6-23); CALCIUM, SERUM 8.7 MG/DL (8.5-10.4); CHLORIDE, SERUM 111 MMOL/L (96-112); CO2 (CARBON DIOXIDE) 23 MMOL/L (24-34); CREATININE 1.36 MG/DL (0.70-1.30); GFR AFRICAN AMERICAN 54 ML/MIN (>=60); GFR NON AFRICAN AMERICAN 46 ML/MIN (>=60); GLUCOSE, SERUM 140 MG/DL (60-99); PHOSPHORUS, SERUM 2.4 MG/DL (2.5-4.5); POTASSIUM, SERUM 4.5 MMOL/L (3.5-5.3); SODIUM, SERUM 142 MMOL/L (135-148)
[2016-11-29 06:40] LABS: BAND NEUTROPHILS 14 %; EOSINOPHILS 1 %; EOSINOPHILS ABSOLUTE (CALC) 0.28 10/3/uL (0.0-0.53); LYMPHOCYTES 6 %; LYMPHOCYTES ABSOLUTE (CALC) 1.66 10/3/uL (0.67-4.30); MONOCYTES 3 %; MONOCYTES ABSOLUTE (CALC) 0.83 10/3/uL (0.21-1.20); NEUTROPHILS ABSOLUTE (CALC) 24.84 10/3/uL (2.02-8.40); PLATELET ESTIMATE ADQ (ADEQUATE); SEGMENTED NEUTROPHIL (0) 76 %; TEARDROP SHAPED RBCS OCC (0-2/OIF); TOTAL NUCLEATED CELLS 100; TOXIC GRANULATION SLT
[2016-11-29 06:41] LABS: HELMET CELLS OCC (0-2/OIF); MACROCYTES 1+ (5-10/OIF) (0-5/OIF); POLYCHROMASIA 1+ (2-5/OIF) (0-1/OIF)
[2016-11-29 07:36] LABS: PROCALCITONIN 18.86 ng/mL (<0.5)
[2016-11-30 06:21] LABS: BASOPHILS 0.1 %; BASOPHILS ABSOLUTE 0.02 10/3/uL (0.0-0.16); EOSINOPHILS 0 %; EOSINOPHILS ABSOLUTE 0.01 10/3/uL (0.0-0.53); HEMATOCRIT 36.6 % (40.0-51.0); HEMOGLOBIN 12.2 g/dL (13.6-17.8); IMMATURE GRANULOCYTES 0.4 %; IMMATURE GRANULOCYTES ABSOLUTE 0.08 10/3/uL (0.0-0.11); LYMPHOCYTES 9.1 %; LYMPHOCYTES ABSOLUTE 1.84 10/3/uL (0.67-4.30); MEAN CORPUS HGB CONC 33.3 g/dL (32.0-36.0); MEAN CORPUSCULAR HEMOGLOB 32.4 pg (26.0-34.0); MEAN CORPUSCULAR VOLUME 97.1 fL (80-100); MEAN PLATELET VOLUME 9.5 fL (9.2-13.0); MONOCYTES 4.5 %; MONOCYTES ABSOLUTE 0.91 10/3/uL (0.21-1.20); NEUTROPHILS 85.9 %; NEUTROPHILS ABSOLUTE 17.39 10/3/uL (2.02-8.40); PLATELET COUNT 280 10/3/uL (150-400); RBC DISTRIBUTION WIDTH 14.5 % (12.0-16.0); RED CELL COUNT 3.77 10/6/uL (4.7-6.1); WHITE BLOOD CELLS 20.3 10/3/uL (4.5-10.5)
[2016-11-30 06:23] LABS: MANUAL DIFF NO %
[2016-11-30 06:41] LABS: CHLORIDE, SERUM 106 MMOL/L (96-112); CO2 (CARBON DIOXIDE) 25 MMOL/L (24-34); CREATININE 1.29 MG/DL (0.70-1.30); GFR AFRICAN AMERICAN 57 ML/MIN (>=60); GFR NON AFRICAN AMERICAN 50 ML/MIN (>=60); SODIUM, SERUM 141 MMOL/L (135-148)
[2016-11-30 06:42] LABS: BUN (BLOOD UREA NITROGEN) 21 MG/DL (6-23); GLUCOSE, SERUM 110 MG/DL (60-99); POTASSIUM, SERUM 4.2 MMOL/L (3.5-5.3)
[2016-12-01 07:21] LABS: MEAN CORPUS HGB CONC 34.2 g/dL (32.0-36.0); MEAN CORPUSCULAR HEMOGLOB 33.6 pg (26.0-34.0); MEAN CORPUSCULAR VOLUME 98.2 fL (80-100); MEAN PLATELET VOLUME 9.4 fL (9.2-13.0); PLATELET COUNT 265 10/3/uL (150-400); RBC DISTRIBUTION WIDTH 14.3 % (12.0-16.0); RED CELL COUNT 3.87 10/6/uL (4.7-6.1); WHITE BLOOD CELLS 16.5 10/3/uL (4.5-10.5)
[2016-12-01 07:22] LABS: MANUAL DIFF YES %
[2016-12-01 07:43] LABS: BUN (BLOOD UREA NITROGEN) 23 MG/DL (6-23); CALCIUM, SERUM 9.2 MG/DL (8.5-10.4); CHLORIDE, SERUM 105 MMOL/L (96-112); CO2 (CARBON DIOXIDE) 25 MMOL/L (24-34); CREATININE 1.26 MG/DL (0.70-1.30); GFR AFRICAN AMERICAN 59 ML/MIN (>=60); GFR NON AFRICAN AMERICAN 51 ML/MIN (>=60); GLUCOSE, SERUM 99 MG/DL (60-99); PHOSPHORUS, SERUM 2.6 MG/DL (2.5-4.5); POTASSIUM, SERUM 3.9 MMOL/L (3.5-5.3); SODIUM, SERUM 140 MMOL/L (135-148)
[2016-12-01 07:44] LABS: BAND NEUTROPHILS 1 %; IMMATURE GRANS ABSOLUTE (CALC) 0.17 10/3/uL (0.0-0.11); LYMPHOCYTES 4 %; LYMPHOCYTES ABSOLUTE (CALC) 0.66 10/3/uL (0.67-4.30); METAMYELOCYTES 1 %; MONOCYTES 6 %; MONOCYTES ABSOLUTE (CALC) 0.99 10/3/uL (0.21-1.20); NEUTROPHILS ABSOLUTE (CALC) 14.69 10/3/uL (2.02-8.40); PLATELET ESTIMATE ADQ (ADEQUATE); RBC MORPHOLOGY NORM (NORMAL); SEGMENTED NEUTROPHIL (0) 88 %; TOTAL NUCLEATED CELLS 100
[2016-12-01] MEDS ORDERED: LEVAQUIN750 MG PO (13:48)
[2016-12-01] MEDS ORDERED: ANOROELLIPTA INH (13:49)
[2016-12-01] MEDS ORDERED: PROAIR HFA INH (13:49)
== END 2016-12-01 15:20 | disposition home or self-care (01) | DRG 871 ==
LOC: ER 23:00 → 6NO 11-27 02:15
PROVIDERS: Emergency Medicine; Hospitalist; Internal Medicine
DX: A41.9 Sepsis, unspecified organism (principal); J96.01 Acute respiratory failure with hypoxia; N17.9 Acute kidney failure, unspecified; I50.33 Acute on chronic diastolic (congestive) heart failure; J18.9 Pneumonia, unspecified organism; N18.3 Chronic kidney disease, stage 3 (moderate); I13.0 Hypertensive heart and chronic kidney disease with heart failure and stage 1 through stage 4 chronic kidney disease, or unspecified chronic kidney disease; I44.7 Left bundle-branch block, unspecified; I25.10 Atherosclerotic heart disease of native coronary artery without angina pectoris; I73.9 Peripheral vascular disease, unspecified; I49.3 Ventricular premature depolarization; I70.1 Atherosclerosis of renal artery; N18.9 Chronic kidney disease, unspecified; Z85.038 Personal history of other malignant neoplasm of large intestine; Z90.49 Acquired absence of other specified parts of digestive tract; Z85.528 Personal history of other malignant neoplasm of kidney; Z90.5 Acquired absence of kidney; Z87.891 Personal history of nicotine dependence; Z82.3 Family history of stroke; Z88.5 Allergy status to narcotic agent; Z88.6 Allergy status to analgesic agent; Z88.1 Allergy status to other antibiotic agents; Z85.828 Personal history of other malignant neoplasm of skin
CPT/HCPCS: 36600; 71010; 71250; 80048; 80053; 80069; 80202; 81001; 82550; 82553; 82570; 82607; 82746; 82805; 83605; 83735; 83880; 83935; 84100; 84145; 84300; 84484; 85025; 85049; 85610; 87040; 87070; 87205; 87449; 87804; 93005; 93975; 94640; 96365; 96372; 99285; A9270-GY; J0360; J0456; J1956; J2543; J2920; J3370